=== PATIENT | male | born 1965 | race Caucasian/White ===

== ENCOUNTER 2019-12-19 07:17 | Outpatient (CLI) | payer OTHER, SELFPAY ==
--- NOTE | 2020-01-13 15:00 | WPDHOMESLEEP ---
Sleep Study - Home Date of Study: 12/19/19 Ordering Provider: Facundo Mercedes DO Interpreting Physician: Bonny Correa MD Home Sleep Study Type: Apnea Link Air Height: 1.65 m Weight: 95.254 kg Body Mass Index: 34.9 Economy: 12 Reason for Sleep Study Hypersomnia Sleep History Zach Song is a 54-year-old man 5 ft 5 in tall 210 lb with a body mass index of 34.9. He works swing shift. 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 He has seen his primary care doctor and his dentist about this problem. He occasionally awakens from sleep feeling short of breath. He rarely awakens at night with heartburn Joss coughing. He occasionally snores but does not mention if it is loud. He occasional has trouble sleep with a cold. He rarely wakes up gasping for breath at night. He never has breathing problems at night reported to by others and he does not sweat excessively at night. He rarely notices his heart pounding or beating her regularly at night. He occasionally fall asleep during the day, never involuntarily, never while driving, never during physical effort and he does not have loss of muscle tone was strong emotion. He occasionally has daytime difficulties due to excessive sleepiness. he does not feel paralyzed on waking or falling asleep and does not have vivid dreamlike scenes upon awakening or falling asleep. He has never Frenchie go to sleep. Does not have nightmares and does not remember his dreams. He occasionally has racing thoughts. Does not feel sad or depressed, really has anxiety, occasional his muscular tension, notices parts of his body jerking, kicks at night, has crawling and aching feelings in his legs and occasionally has leg pain at night. He does not have morning jaw pain. He does not grind his teeth during sleep. He is not bothered by pain during the day. He rarely is awakened by pain at night. He occasion wakes up feeling stiff in the morning with sore achy muscles rarely with pain in the neck and spine. His has headaches, fatigue, and insomnia. [place] = 12. Normal bedtime is 10:00, falling asleep within 1-2 hours waking 1 or 2 times while asleep, staying awake 1-3 hours. During this time he will go to the bathroom. He wakes in the morning between 1:00 and 2:00 a.m. He stays in bed for an hour before getting up. He estimate having 4-1/2 hours of sleep at night. He does watch television before falling asleep. He takes naps in the afternoon or evening. He will feel refreshed after short nap. He is usually drowsy after waking for 3 hours or longer. Habits: Never smoked tobacco. Two caffeinated beverages a day. No alcohol or recreational drugs. [facility] Past Medical History Medical History (Updated 01/13/20 @ 15:18 by Bonny Correa MD) Hypogonadism Family History Family History Father Family history of kidney disease Family history of coronary artery disease Family history of congestive heart failure Diabetes mellitus Mother Diabetes mellitus Sibling Family history of throat cancer Other Family history of seizure disorder Social History Social History Smoking status: Never smoker Second hand tobacco smoke exposure: No Alcohol intake: current Medications Home Medications Medication Instructions Recorded Confirmed Type testosterone cypionate 100 mg/mL 100 mg IM .q2week #10 ml 11/08/19 11/08/19 Rx intramuscular oil Sleep Procedure This test was performed using 4 channel monitoring including respiratory effort channel snoring channel heart rate channel and oxygen saturation channel. This study was scored using CMS guidelines. Sleep Architecture Not applicable for home sleep test. Respiratory Analysis Duration of the study was 6 hours 15 minutes
[2020-01-13 15:21] VITALS: BMI 34.9
== END 2019-12-19 07:18 | disposition home or self-care (01) ==
LOC: ANHCSM 07:18
PROVIDERS: PCP Family Medicine; Visit Provider Family Medicine
DX: G47.33 Obstructive sleep apnea (adult) (pediatric) (principal); F51.12 Insufficient sleep syndrome
CPT/HCPCS: 95806

== ENCOUNTER 2020-04-03 07:33 | Outpatient (CLI) | payer OTHER, SELFPAY ==
--- NOTE | 2020-04-03 07:48 | ECHO_ITS ---
Patient Info Name: Zach Song Age: 54 years : 1965 Gender: Male Ht: 65 in Wt: 220 lbs BSA: 2.18 m2 HR: 57 bpm BP: 173 / 83 mmHg Technical Quality: Good Exam Date: 04/03/2020 8:17 AM Exam Location: [facility] Pulmonary Patient Status: Outpatient Admit Date: 04/03/2020 Staff Ordering Physician: Bonny Correa MD Bass Singer: Brenden Eid RDCS, RT Attending Provider: Bonny Correa MD Referring Physician: Sunny LAW; Exam Type: CA echo doppler color flow Study Info Indications R06.02 - Shortness of breath Complete two-dimensional, color flow and Doppler transthoracic echocardiogram is performed. Strain analysis performed. Summary 1. Complete two-dimensional, color flow and Doppler transthoracic echocardiogram is performed. 2. Left ventricular chamber dimension is normal. 3. Left ventricular systolic function is normal, estimated at 60-65%. 4. There is moderately increased left ventricular wall thickness. 5. The left ventricular diastolic function is grade II diastolic dysfunction. 6. E/e' 12 is mildly elevated. 7. Global longitudinal strain is normal at -20.1%. 8. There is trace mitral valve regurgitation. Left Ventricle E/e' 12 is mildly elevated. Global longitudinal strain is normal at -20.1%. Left ventricular chamber dimension is normal. Left ventricular systolic function is normal, estimated at 60-65%. There is moderately increased left ventricular wall thickness. The left ventricular diastolic function is grade II diastolic dysfunction. Right Ventricle Right ventricular systolic function is normal and with normal TAPSE at 3.3 cm. Right ventricular chamber dimension is normal. Left Atria Left atrial chamber dimension is normal. Right Atria Right atrial chamber dimension is normal. Aortic Valve The aortic valve is trileaflet. There is no aortic valve stenosis. There is no aortic valve regurgitation. Pulmonic Valve There is no pulmonic regurgitation. Mitral Valve There is no mitral valve stenosis. There is trace mitral valve regurgitation. Tricuspid Valve There is no tricuspid valve regurgitation. Pericardium/Pleural There is no pericardial effusion. Inferior Vena Cava Normal inferior vena cava with >50% collapse upon inspiration consistent with normal right atrial pressure, 5 mmHg. Aorta The aortic root size at the sinus of Valsalva is normal. Left Ventricular Outflow Tract Name Value Normal LVOT 2D LVOT Diameter 2.0 cm LVOT Doppler LVOT Peak Gradient 4 mmHg LVOT Mean Gradient 2 mmHg LVOT VTI 24 cm LVOT VTI/AV VTI Ratio 0.6 LVOT Stroke Volume 72 ml LVOT CO 4.0 l/min LVOT CI 1.8 l/min/m2 Mitral Valve Name Value Normal MV Doppler -------
== END 2020-04-03 07:34 | disposition home or self-care (01) ==
PROVIDERS: PCP Family Medicine; Visit Provider Internal Medicine Critical Care Medicine
DX: R06.02 Shortness of breath (principal); G47.33 Obstructive sleep apnea (adult) (pediatric); G47.19 Other hypersomnia
CPT/HCPCS: 93306

== ENCOUNTER 2020-04-21 01:26 | Outpatient (CLI) | payer OTHER, SELFPAY ==
[2020-04-21 19:18] LABS: SARS-CoV-2 RNA PCR Negative
== END 2020-04-21 01:27 | disposition home or self-care (01) ==
LOC: ANHCOVIDDT 01:26
PROVIDERS: PCP Family Medicine; Visit Provider Internal Medicine Critical Care Medicine
DX: Z01.812 Encounter for preprocedural laboratory examination (principal); Z20.822 Contact with and (suspected) exposure to COVID-19
CPT/HCPCS: C9803; U0003; U0005

== ENCOUNTER 2020-04-23 10:06 | Outpatient (CLI) | payer OTHER, SELFPAY ==
--- NOTE | 2020-05-20 16:21 | WPDSLEEPSTUD ---
Sleep Study Date of Study: 04/23/20 Ordering Provider: Bonny Correa MD Interpreting Physician: Bonny Correa MD Sleep Study Type: CPAP Titration Height: 1.65 m Weight: 95.25 kg Body Mass Index: 34.9 Neck Circumference: 45.72 cm [place]: 12 Reason for Sleep Study Home sleep test ApneaLink 12/19/2019 moderate central sleep apnea, AHI 22, 54% central apneas; presents for CPAP titration Sleep History Zach Song is a 54-year-old man who had a home sleep test Dec 19, 2019 with AHI 22, 56% central apneas. He works swing shift. The patient has difficulty falling asleep, he wakes up during the night, he wakes up in the food aide and he has excessive daytime sleepiness. He has seen his primary care doctor and his dentist about this problem. He occasionally awakens from sleep feeling short of breath. He rarely awakens at night with heartburn Joss coughing. He occasionally snores but does not mention if it is loud. He occasional has trouble sleep with a cold. He rarely wakes up gasping for breath at night. He never has breathing problems at night reported to by others and he does not sweat excessively at night. He rarely notices his heart pounding or beating her regularly at night. He occasionally fall asleep during the day, never involuntarily, never while driving, never during physical effort and he does not have loss of muscle tone was strong emotion. He occasionally has daytime difficulties due to excessive sleepiness. he does not feel paralyzed on waking or falling asleep and does not have vivid dreamlike scenes upon awakening or falling asleep. He has never Frenchie go to sleep. Does not have nightmares and does not remember his dreams. He occasionally has racing thoughts. Does not feel sad or depressed, really has anxiety, occasional his muscular tension, notices parts of his body jerking, kicks at night, has crawling and aching feelings in his legs and occasionally has leg pain at night. He does not have morning jaw pain. He does not grind his teeth during sleep. He is not bothered by pain during the day. He rarely is awakened by pain at night. He occasion wakes up feeling stiff in the morning with sore achy muscles rarely with pain in the neck and spine. His has headaches, fatigue, and insomnia. [place] = 12. Normal bedtime is 10:00 p.m., falling asleep within 1-2 hours, waking 1 or 2 times while asleep, staying awake 1-3 hours. During this time he will go to the bathroom. He wakes in the morning between 1:00 and 2:00 a.m. He stays in bed for an hour before getting up. He estimate having 4-1/2 hours of sleep at night. He does watch television before falling asleep. He takes naps in the afternoon or evening. He will feel refreshed after short nap. He is usually drowsy after waking for 3 hours or longer. Habits: Never smoked tobacco. Two caffeinated beverages a day. No alcohol or recreational drugs. [facility] Past Medical History Medical History (Updated 04/17/20 @ 09:15 by Jeremie Watkins DO) Hypogonadism Family History Family History Father Family history of kidney disease Family history of coronary artery disease Family history of congestive heart failure Diabetes mellitus Mother Diabetes mellitus Sibling Family history of throat cancer Other Family history of seizure disorder Social History Social History Smoking status: Never smoker Second hand tobacco smoke exposure: No Alcohol intake: current Sleep Procedure This test was performed using the [employer] multiple channel system including EOG, EEG, submental EMG, EKG, nasal and oral airflow using thermistors and nasal pressure sensors, chest and abdominal belts for body position data, and pulse oximetry. Video monitoring was also performed. The study was scored using CMS guidelines. He self-administered Lunesta 3 mg at 20:45
[2020-05-28 14:57] VITALS: BMI 34.9
== END 2020-04-23 10:07 | disposition home or self-care (01) ==
LOC: ANHCSM 10:08
PROVIDERS: PCP Family Medicine; Visit Provider Internal Medicine Critical Care Medicine
DX: G47.33 Obstructive sleep apnea (adult) (pediatric) (principal); Z68.35 Body mass index [BMI] 35.0-35.9, adult
CPT/HCPCS: 95811

== ENCOUNTER 2020-05-08 09:15 | Outpatient (CLI) | payer OTHER, SELFPAY ==
--- NOTE | 2020-05-08 09:17 | EST_ITS ---
Patient Info Name: Zach Song Age: 54 years : 1965 Gender: Male Ht: 65 in Wt: 220 lbs BSA: 2.18 m2 Exam Date: 05/08/2020 9:50 AM Exam Location: [facility] Stress Patient Status: Outpatient Admit Date: 05/08/2020 Staff Ordering Physician: Jeremie Watkins DO Attending Provider: Jeremie Watkins DO Exercise Technologist: Noreen Quiroga RDCS Exercise Physician: Jeremie Watkins DO Exam Type: CA stress test treadmill Study Info Indications R06.00 - Dyspnea, unspecified A treadmill exercise stress test was performed. Summary 1. 1. Negative Donnie exercise stress test for ischemic ST changes by ECG criteria. 2. 2. Good functional capacity, achieving 10 METs of workload. 3. 3. Appropriate HR response to exercise. 4. 4. Appropriate HR recovery at 1 minute post exercise. 5. 5. Baseline hypertension with hypertensive response to exercise. 6. 6. No imaging with stress testing. 7. 7. Patient informed of the above results. Protocol: Donnie Stress ECG Details Stage: REST Duration (min): 7 min : 2 sec Speed (mph): 0.0 Grade (%): 0 HR (bpm): 62 SBP (mmHg): 148 DBP (mmHg): 76 METS: --- Stage: REST Duration (min): 21 min : 2 sec Speed (mph): 0.0 Grade (%): 0 HR (bpm): 59 SBP (mmHg): 148 DBP (mmHg): 76 METS: --- Stage: STAGE 1 Duration (min): 1 min : 0 sec Speed (mph): 1.7 Grade (%): 10 HR (bpm): 88 SBP (mmHg): 148 DBP (mmHg): 76 METS: --- Stage: STAGE 1 Duration (min): 2 min : 0 sec Speed (mph): 1.7 Grade (%): 10 HR (bpm): 97 SBP (mmHg): 148 DBP (mmHg): 76 METS: --- Stage: STAGE 1 Duration (min): 3 min : 0 sec Speed (mph): 1.7 Grade (%): 10 HR (bpm): 102 SBP (mmHg): 168 DBP (mmHg): 54 METS: --- Stage: STAGE 2 Duration (min): 1 min : 0 sec Speed (mph): 2.5 Grade (%): 12 HR (bpm): 112 SBP (mmHg): 168 DBP (mmHg): 54 METS: --- Stage: STAGE 2 Duration (min): 2 min : 0 sec Speed (mph): 2.5 Grade (%): 12 HR (bpm): 123 SBP (mmHg): 169 DBP (mmHg): 60 METS: --- Stage: STAGE 2 Duration (min): 3 min : 0 sec Speed (mph): 2.5 Grade (%): 12 HR (bpm): 126 SBP (mmHg): 169 DBP (mmHg): 60 METS: --- Stage: STAGE 3 Duration (min): 1 min : 0 sec Speed (mph): 3.4 Grade (%): 14 HR (bpm): 137 SBP (mmHg): 184 DBP (mmHg): 68 METS: --- Stage: STAGE 3 Duration (min): 2 min : 0 sec Speed (mph): 3.4 Grade (%): 14 HR (bpm): 152 SBP (mmHg): 184 DBP (mmHg): 68 METS: --- Stage: STAGE 3 Duration (min): 3 min : 0 sec Speed (mph): 3.4 Grade (%): 14 HR (bpm): 157 SBP (mmHg): 226 DBP (mmHg): 59 METS: --- Stage: RECOVERY Duration (min): 1 min : 0 sec Speed (mph): 0.0 Grade (%): 0 HR (bpm): 130 SBP (mmHg): 199 DBP (mmHg): 68 METS: --- Stage: R
== END 2020-05-08 09:16 | disposition home or self-care (01) ==
PROVIDERS: PCP Family Medicine; Visit Provider Internal Medicine Cardiovascular Disease
DX: R06.00 Dyspnea, unspecified (principal)
CPT/HCPCS: 93017

== ENCOUNTER 2020-10-18 12:58 | Emergency (ER) | payer OTHER, SELFPAY ==
[2020-10-18 13:02] VITALS: BP 124/64; PULSE 55; RESP 12; TEMP 36.6; O2SAT 100
[2020-10-18 13:05] VITALS: BP 124/64; PULSE 55; RESP 12; TEMP 36.6; O2SAT 100
--- NOTE | 2020-10-18 13:24 | ED.SKABFB ---
HPI - Skin/Abscess/Foreign Bdy General Chief complaint: Skin/Abscess/Foreign Body Stated complaint: RASH Time Seen by Provider: 10/18/20 13:15 Source: patient and RN notes reviewed Mode of arrival: ambulatory Limitations: no limitations History of Present Illness HPI narrative: Patient presents today complaining of a pruritic rash to his bilateral arms, waistband, and genitalia x2 days that has been worsening since onset. Believes it is poison lanie, oak, sumac as he was pulling landscaping blocks out of weeds prior to onset of symptoms. He has been using some old poison lanie medication without relief. MD complaint: rash Related Data Allergies Allergy/AdvReac Type Severity Reaction Status Date / Time No Known Allergies Allergy Unknown Verified 10/18/20 13:04 Review of Systems Review of Systems: CONSTITUTIONAL: Denies body aches, fever, chills, or sweats. EYES: Denies visual changes, redness, or discharge. ENT: Denies rhinorrhea, congestion, sore throat, or otalgia. CARDIOVASCULAR: Denies chest pain, palpitations, or edema. RESPIRATORY: Denies cough or dyspnea. GASTROINTESTINAL: Denies abdominal pain, nausea, vomiting, or diarrhea. GENITOURINARY: Denies dysuria or hematuria. SKIN: Pruritic rash MUSCULOSKELETAL: Denies back pain, joint pain, or myalgia. NEUROLOGIC: Denies headache, numbness, tingling, or weakness. PSYCH: Denies depression or anxiety. [facility] Past Medical History Medical History (Updated 10/18/20 @ 13:27 by Rosalind Mandujano, RAMYA, ) Hypogonadism Family History Family History Father Family history of kidney disease Family history of coronary artery disease Family history of congestive heart failure Diabetes mellitus Mother Diabetes mellitus Sibling Family history of throat cancer Other Family history of seizure disorder Social History Social History Smoking status: Never smoker Second hand tobacco smoke exposure: No Alcohol intake: current Comments At time of signature, I have reviewed and agree with nursing past medical, surgical, social and family history unless otherwise noted. Please see nursing chart for further information. There is no relevant family history pertinent to the presenting complaint Exam Narrative: GENERAL: Well-appearing, well-nourished, and in no acute distress. HEAD: Normocephalic, atraumatic. EYES: EOMI. No redness or drainage. Conjunctivae normal. ENT: Mucous membranes pink and moist. NECK: Normal AROM. CHEST: No respiratory distress. EXTREMITIES: Normal range of motion. No edema. SKIN: Warm, dry. Capillary refill normal. Normal skin turgor. + Faintly erythematous papular rash to the forearms, waistband anteriorly, and the left side of the scrotum and penis. There is some slight induration to the scrotum. NEURO: No focal deficits. Alert and oriented x3. Gait steady. PSYCH: Normal affect. No signs of depression or anxiety. Course Vital Signs Vital signs: Vital Signs Temperature 97.8 F 10/18/20 13:02 Pulse Rate 55 L 10/18/20 13:02 Respiratory Rate 12 10/18/20 13:02 Blood Pressure 124/64 10/18/20 13:02 Pulse Oximetry 100 10/18/20 13:02 Temperature 97.8 F 10/18/20 13:05 Pulse Rate 55 L 10/18/20 13:05 Respiratory Rate 12 10/18/20 13:05 Blood Pressure 124/64 10/18/20 13:05 Pulse Oximetry 100 10/18/20 13:05 Reviewed. Pt has been instructed to follow up with his PCP regarding his elevated blood pressure today. MDM - Skin/Abscess/Foreign Bdy Differential Diagnosis Differential diagnosis: Likely urticaria, cellulitis, eczema, insect bites, impetigo and contact dermatitis Critical Care Time Critical Care Time Critical Care Time: No Discharge Plan Discharge Clinical Impression: Contact dermatitis Qualifiers: Contact dermatitis type: unspecified Contact dermatitis trigger: unspecified
== END 2020-10-18 13:49 | disposition home or self-care (01) ==
PROVIDERS: Emergency Provider Nurse Practitioner; PCP Family Medicine
DX: L25.9 Unspecified contact dermatitis, unspecified cause (principal)
CPT/HCPCS: 99213; G0463

== ENCOUNTER 2020-11-05 18:33 | Emergency (ER) | payer OTHER, SELFPAY ==
[2020-11-05 18:39] VITALS: BP 125/73; PULSE 58; RESP 16; TEMP 37.1; O2SAT 98
--- NOTE | 2020-11-05 19:08 | ED.SKABFB ---
HPI - Skin/Abscess/Foreign Bdy General Chief complaint: Skin/Abscess/Foreign Body Stated complaint: UNKNOWN Time Seen by Provider: 11/05/20 19:05 Source: patient Mode of arrival: ambulatory Limitations: no limitations History of Present Illness HPI narrative: Zach Song is a 55 yo male with no PMH [facility] episode of poison lanie. Seen here couple weeks ago for poison lanie was put on a Medrol dose pack. He states discussed with the patient that he needs to make sure that all the oil has been removed from his ptosis gloves shoes all clothing and he claims that that has been done and that this is not new exposure. He wants an prednisone shot as well as another dose of steroids Related Data Allergies Allergy/AdvReac Type Severity Reaction Status Date / Time No Known Allergies Allergy Unknown Verified 11/05/20 18:40 Review of Systems Review of Systems: CONSTITUTIONAL: Denies fever, chills, sweats. EYES: Denies visual changes, redness, discharge. ENT: Denies rhinorrhea, congestion, sore throat, otalgia. CARDIOVASCULAR: Denies chest pain, palpitations, edema. RESPIRATORY: Denies dyspnea, wheezing, cough GASTROINTESTINAL: Denies abdominal pain, nausea, vomiting, diarrhea. GENITOURINARY: Denies dysuria, hematuria, abnormal discharge SKIN: Itchy rash on forearms abdomen legs and right underarm. Left forearm specifically looks like a new rash as does his abdomen NEUROLOGIC: Denies numbness, or focal weakness. PSYCHIATRIC: Denies anxiety or depression. PMFSH Past Medical History Medical History Dyslipidemia Hypogonadism Obesity Family History Family History Father Family history of kidney disease Family history of coronary artery disease Family history of congestive heart failure Diabetes mellitus Mother Diabetes mellitus Sibling Family history of throat cancer Other Family history of seizure disorder Social History Social History Smoking status: Never smoker Second hand tobacco smoke exposure: No Alcohol intake: current Comments At time of signature, I agree with nursing past medical, surgical, social and family history. There is no relevant family history pertinent to the presenting complaint. Exam Narrative: GENERAL: This is a well-nourished, well-developed patient, in mild distress. HEAD: normocephalic, atraumatic. EYES: Sclera clear/white. Vision is grossly intact. EARS: External ears normal. Hearing grossly intact. NOSE: External nose normal without nasal discharge, nares without redness, no rhinorrhea. THROAT: Mucous membranes moist, NECK: Neck supple, CARDIOVASCULAR: Regular rate and rhythm without murmurs, gallops, or rubs. RESPIRATORY: Clear to auscultation. Breath sounds equal bilaterally. No wheezes, rales, or rhonchi. GASTROINTESTINAL: Abdomen soft,, SKIN: warm, intact with pruritic erythematous papular rash on left forearm extensively bilateral legs small amount on the lower part of the left abdomen and right axilla NEURO: awake, alert, and oriented to person, place and time. There were no obvious focal neurologic abnormalities. Steady gait EXTREMITIES: Normal range of motion. BACK: Nontender without deformity Course Course Emergency Course: Patient here for recurrence of contact dermatitis he states he does not know how he was reinfected Patient given IM Solu-Medrol Given another Medrol Dosepak, recommended use of Benadryl and Pepcid also Vital Signs Vital signs: Vital Signs Temperature 98.7 F 11/05/20 18:39 Pulse Rate 58 L 11/05/20 18:39 Respiratory Rate 16 11/05/20 18:39 Blood Pressure 125/73 11/05/20 18:39 Pulse Oximetry 98 11/05/20 18:39 Temperature 98.7 F 11/05/20 18:39 Pulse Rate 58 L 11/05/20 18:39 Respiratory Rate 16 11/05/20 18:39 Blood Pressure
[2020-11-05] MEDS: methylPREDNISolone SOD SUCC 125 MG VIAL 80 MG IM (19:27)
== END 2020-11-05 19:45 | disposition home or self-care (01) ==
PROVIDERS: Emergency Provider Nurse Practitioner; PCP Family Medicine
DX: L23.7 Allergic contact dermatitis due to plants, except food (principal); E78.5 Hyperlipidemia, unspecified; E66.9 Obesity, unspecified; Z68.28 Body mass index [BMI] 28.0-28.9, adult
CPT/HCPCS: 96372; 99213; G0463; J2930

== ENCOUNTER 2020-11-13 07:33 | Outpatient (CLI) | payer OTHER, SELFPAY ==
[2020-11-13 18:37] LABS: Basophils Percent Auto 0.4 % (0.2-1.2); Eosinophils Absolute Auto 0.4 K/mm3 (0-0.3); Eosinophils Percent Auto 5.7 % (0-4.4); Hematocrit 46.1 % (42.0-52.0); Hemoglobin 14.7 g/dL (14.0-18.0); Immature Granulocyte Absolute 0.03 K/mm3 (0.00-0.031); Immature Granulocyte Percent A 0.4 % (0-0.5); Lymphocytes Absolute Auto 2.92 K/mm3 (0.9-3.2); Lymphocytes Percent Auto 39.5 % (18.3-44.2); Mean Corpuscular HGB Conc 31.9 g/dl (32-36); Mean Corpuscular Hemoglobin 27.5 pg (26-34); Mean Corpuscular Volume 86.3 fl (80-100); Mean Platelet Volume 9.5 fl (7.4-10.4); Monocytes Absolute Auto 0.6 K/mm3 (0.1-0.6); Monocytes Percent Auto 8.4 % (2.6-8.5); Neutrophils Absolute Auto 3.4 K/mm3 (1.3-6.7); Neutrophils Percent Auto 45.6 % (45.5-73.1); Platelet Count Result 307 k/mm3 (150-375); Red Blood Count 5.34 M/mm3 (4.6-6.20); White Blood Count 7.4 K/mm3 (4.5-10.0)
[2020-11-13 18:58] LABS: Hemoglobin A1C 5.5 % (<5.7)
[2020-11-13 18:59] LABS: Alanine Aminotransferase 20 U/L (4-50); Alkaline Phosphatase 72 U/L (38-126); Anion Gap 5 mmol/L (8-16); Aspartate Amino Transferase 18 U/L (17-59); Bilirubin,Total 1.4 mg/dL (0.2-1.3); Blood Urea Nitrogen 19 mg/dL (9-20); Calcium 9.4 mg/dL (8.4-10.2); Carbon Dioxide 28 mmol/L (22-30); Chloride 104 mmol/L (98-107); Cholesterol 172 mg/dL (0-200); Estimated Glomerular Filt Rate > 60; Glucose 90 mg/dL (65-110); HDL Direct 40 mg/dL; Potassium 4.2 mmol/L (3.4-5.0); Sodium 137 mmol/L (137-145); Triglycerides 167 mg/dL (<150)
[2020-11-13 19:09] LABS: LDL Cholesterol Direct 91 mg/dL
[2020-11-13 19:23] LABS: Prostate Specific Antigen 1.2 ng/mL (< OR = 4.0)
[2020-11-13 19:52] LABS: Vitamin D 25 Hydroxy 40.4 ng/mL
[2020-11-18 15:19] LABS: Testosterone Free 68.9 pg/mL (35.0-155.0); Testosterone Total 319 ng/dL (250-1100)
== END 2020-11-13 07:34 | disposition home or self-care (01) ==
LOC: ANHBWCLAB 07:34
PROVIDERS: PCP Family Medicine; Visit Provider Family Medicine
DX: Z00.00 Encounter for general adult medical examination without abnormal findings (principal); E66.9 Obesity, unspecified; E78.5 Hyperlipidemia, unspecified; E29.1 Testicular hypofunction; G47.29 Other circadian rhythm sleep disorder; Z12.5 Encounter for screening for malignant neoplasm of prostate; E55.9 Vitamin D deficiency, unspecified
CPT/HCPCS: 36415; 80053; 80061; 82306; 83036; 84153; 84402; 84403; 85025; G0103

== ENCOUNTER 2021-09-02 12:06 | Emergency (ER) | payer OTHER, SELFPAY ==
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
[2021-09-02 12:13] VITALS: BP 156/84; PULSE 68; RESP 16; TEMP 37.1; O2SAT 99
[2021-09-02 12:16] VITALS: BP 156/84; PULSE 68; RESP 16; TEMP 37.1; O2SAT 99
== END 2021-09-02 13:10 | disposition home or self-care (01) ==
PROVIDERS: Emergency Provider Nurse Practitioner Family
DX: S39.012A Strain of muscle, fascia and tendon of lower back, initial encounter (principal); S16.1XXA Strain of muscle, fascia and tendon at neck level, initial encounter; V43.52XA Car driver injured in collision with other type car in traffic accident, initial encounter; E78.5 Hyperlipidemia, unspecified; E66.9 Obesity, unspecified; Z68.32 Body mass index [BMI] 32.0-32.9, adult
CPT/HCPCS: 72040; 72100; 99213; G0463

== ENCOUNTER 2022-01-17 08:02 | Emergency (ER) | payer OTHER, SELFPAY ==
--- NOTE | 2022-01-17 08:10 | ED.URI ---
HPI - URI/Sore Throat General Chief Complaint: Upper Respiratory Infection Stated Complaint: migraine, sore throat, sinus pressure Time Seen by Provider: 01/17/22 08:17 Source: patient and RN notes reviewed Mode of arrival: ambulatory Limitations: no limitations History of Present Illness HPI Narrative: 56-year-old male presents with concern for 1 and half day history headache, fever, chills, sore throat. Reports taking aspirin with mild relief of the headache. He reports he is starting to have a cough and postnasal drainage. MD elicited complaint: sore throat and other (Headache) Related Data Allergies Allergy/AdvReac Type Severity Reaction Status Date / Time No Known Allergies Allergy Unknown Verified 09/02/21 12:16 Review of Systems Review of Systems: CONSTITUTIONAL: Reports malaise, chills, tactile fever. EYES: Denies visual changes, redness, or discharge. ENT: Denies rhinorrhea, congestion, sinus pain, otalgia. Reports postnasal drainage and sore throat. CARDIOVASCULAR: Denies chest pain, palpitations, or edema. RESPIRATORY: Reports cough. Denies dyspnea. GASTROINTESTINAL: Denies abdominal pain, nausea, vomiting, diarrhea SKIN: Denies rash or itching. MUSCULOSKELETAL: Denies myalgia. NEUROLOGIC: Reports headache. All systems reviewed & are unremarkable except as noted in HPI and below PMFSH Past Medical History Medical History Dyslipidemia Hypogonadism Obesity Family History Family History Father Family history of kidney disease Family history of coronary artery disease Family history of congestive heart failure Diabetes mellitus Mother Diabetes mellitus Sibling Family history of throat cancer Other Family history of seizure disorder Social History Social History Smoking status: Never smoker Second hand tobacco smoke exposure: No Alcohol intake: current Comments At time of signature, agree with nursing past medical, surgical, social and family history. There is no relevant family history pertinent to the presenting complaint Exam Narrative: GENERAL: Nontoxic-appearing and in no acute distress. HEAD: Normocephalic EYES: PERRLA, conjunctivae clear ENT: Nares clear, clear discharge. Mucous membranes moist. TM pearly davis with dull light reflex bilaterally; no tragal tenderness. Oropharynx erythematous without lesions. Tonsils not enlarged and without exudate, no drooling, no hoarseness, no trismus, uvula midline. NECK: Supple. No lymphadenopathy CHEST: Clear to auscultation, breath sounds equal. No wheezing, rhonchi, rales, or stridor. No respiratory distress, speaks in full sentences. HEART: Regular rate and rhythm. No murmur heard. SKIN: Warm, dry, no rash. NEURO: Alert and oriented x3. PSYCH: Normal mood and affect Course Course Emergency Course: Patient is aware of diagnosis, understands and agrees to treatment plan. Anticipatory guidance given. Patient agrees to follow-up as directed and is aware of reasons to seek care at the emergency department. Portions of this record may have been created with voice recognition software Level of Care: Express Care Visit Vital Signs Vital signs: Reviewed. MDM - URI/Sore Throat MDM Narrative Medical decision making narrative: Differential diagnosis considered: Kellogg virus, strep pharyngitis, allergic rhinitis, upper respiratory tract infection, sinusitis, rhinosinusitis, nasopharyngitis. viral pharyngitis, otitis media, otitis externa, pneumonia, bronchitis, viral cough syndrome, viral syndrome, and influenza. Exam findings show no acute concerns or changes; patient is non-toxic appearing and is in no distress. Patient is appropriate for outpatient treatment and follow-up. Lab Data Attestation: I reviewed the patient's lab results. Critical Care Time Critical Care Time Cr
[2022-01-17 08:16] VITALS: BP 132/93; PULSE 85; RESP 16; TEMP 37.7; O2SAT 98
[2022-01-17 20:04] LABS: SARS-CoV-2 RNA PCR Positive
== END 2022-01-17 08:45 | disposition home or self-care (01) ==
PROVIDERS: Emergency Provider Nurse Practitioner
DX: U07.1 COVID-19 (principal)
CPT/HCPCS: 87081; 87804; 87880; 99213; G0463; U0003; U0005

== ENCOUNTER 2022-01-27 08:35 | Outpatient (CLI) | payer OTHER, SELFPAY ==
[2022-01-27 19:30] LABS: Alanine Aminotransferase 32 U/L (6-50); Albumin Level 4.7 g/dL (3.5-5.1); Alkaline Phosphatase 76 U/L (38-126); Anion Gap 11 mmol/L (8-16); Aspartate Amino Transferase 90 U/L (17-59); Bilirubin,Total 0.9 mg/dL (0.2-1.3); Blood Urea Nitrogen 13 mg/dL (9-20); Calcium 9.3 mg/dL (8.4-10.2); Carbon Dioxide 24 mmol/L (22-30); Chloride 104 mmol/L (98-107); Cholesterol 196 mg/dL (0-200); Estimated Glomerular Filt Rate > 60; Glucose 83 mg/dL (65-110); HDL Direct 33 mg/dL; Potassium 4.2 mmol/L (3.4-5.0); Sodium 139 mmol/L (137-145); Triglycerides 245 mg/dL (<150)
[2022-01-27 19:38] LABS: Basophils Absolute Auto 0.1 K/mm3 (0.0-0.1); Basophils Percent Auto 0.8 % (0.2-1.2); Eosinophils Absolute Auto 0.2 K/mm3 (0-0.3); Eosinophils Percent Auto 2.7 % (0-4.4); Hematocrit 46.2 % (42.0-52.0); Hemoglobin 15.3 g/dL (14.0-18.0); Immature Granulocyte Absolute 0.04 K/mm3 (0.00-0.031); Immature Granulocyte Percent A 0.5 % (0-0.5); Lymphocytes Absolute Auto 3.48 K/mm3 (0.9-3.2); Lymphocytes Percent Auto 44.3 % (18.3-44.2); Mean Corpuscular HGB Conc 33.1 g/dl (32-36); Mean Corpuscular Volume 84.6 fl (80-100); Mean Platelet Volume 9.4 fl (7.4-10.4); Monocytes Absolute Auto 0.7 K/mm3 (0.1-0.6); Monocytes Percent Auto 8.5 % (2.6-8.5); Neutrophils Absolute Auto 3.4 K/mm3 (1.3-6.7); Neutrophils Percent Auto 43.2 % (45.5-73.1); Platelet Count Result 399 k/mm3 (150-375); Red Blood Count 5.46 M/mm3 (4.6-6.20); Red Cell Distribution Width 13.1 % (11.5-14.5); White Blood Count 7.9 K/mm3 (4.5-10.0)
[2022-01-27 19:41] LABS: LDL Cholesterol Direct 106 mg/dL
[2022-01-27 19:56] LABS: Prostate Specific Antigen 1.8 ng/mL (< OR = 4.0)
[2022-02-02 12:08] LABS: Testosterone Total 229 ng/dL (250-1100)
== END 2022-01-27 08:36 | disposition home or self-care (01) ==
LOC: ANHBWCLAB 08:37
PROVIDERS: PCP Family Medicine; Visit Provider Family Medicine
DX: E29.1 Testicular hypofunction (principal); Z00.00 Encounter for general adult medical examination without abnormal findings; Z12.5 Encounter for screening for malignant neoplasm of prostate; E66.9 Obesity, unspecified
CPT/HCPCS: 36415; 80053; 80061; 84153; 84402; 84403; 85025; 86787; G0103

== ENCOUNTER 2022-12-16 08:17 | Outpatient (CLI) | payer OTHER, SELFPAY ==
[2022-12-16 19:57] LABS: Basophils Percent Auto 0.6 % (0.2-1.2); Eosinophils Absolute Auto 0.2 K/mm3 (0-0.3); Eosinophils Percent Auto 2.4 % (0-4.4); Hematocrit 47.7 % (42.0-52.0); Immature Granulocyte Absolute 0.02 K/mm3 (0.00-0.031); Immature Granulocyte Percent A 0.3 % (0-0.5); Lymphocytes Absolute Auto 2.69 K/mm3 (0.9-3.2); Lymphocytes Percent Auto 38.6 % (18.3-44.2); Mean Corpuscular HGB Conc 31.4 g/dl (32-36); Mean Corpuscular Hemoglobin 27.6 pg (26-34); Mean Corpuscular Volume 87.7 fl (80-100); Mean Platelet Volume 9.8 fl (7.4-10.4); Monocytes Absolute Auto 0.8 K/mm3 (0.1-0.6); Monocytes Percent Auto 10.8 % (2.6-8.5); Neutrophils Absolute Auto 3.3 K/mm3 (1.3-6.7); Neutrophils Percent Auto 47.3 % (45.5-73.1); Platelet Count Result 307 k/mm3 (150-375); Red Blood Count 5.44 M/mm3 (4.6-6.20); Red Cell Distribution Width 13.8 % (11.5-14.5)
[2022-12-16 20:07] LABS: Alanine Aminotransferase 27 U/L (6-50); Albumin Level 4.6 g/dL (3.5-5.1); Alkaline Phosphatase 72 U/L (38-126); Anion Gap 6 mmol/L (8-16); Aspartate Amino Transferase 96 U/L (17-59); Bilirubin,Total 0.9 mg/dL (0.2-1.3); Blood Urea Nitrogen 11 mg/dL (9-20); Calcium 9.1 mg/dL (8.4-10.2); Carbon Dioxide 32 mmol/L (22-30); Chloride 100 mmol/L (98-107); Cholesterol 172 mg/dL (0-200); Estimated Glomerular Filt Rate > 60; Glucose 93 mg/dL (65-110); HDL Direct 31 mg/dL; Sodium 138 mmol/L (137-145); Triglycerides 219 mg/dL (<150)
[2022-12-16 20:18] LABS: LDL Cholesterol Direct 99 mg/dL
[2022-12-16 20:57] LABS: Hemoglobin A1C 5.5 % (<5.7)
[2022-12-22 12:33] LABS: Testosterone Free 61.3 pg/mL (35.0-155.0); Testosterone Total 275 ng/dL (250-1100)
== END 2022-12-16 08:18 | disposition home or self-care (01) ==
PROVIDERS: PCP Nurse Practitioner Adult Health; Visit Provider Nurse Practitioner Adult Health
DX: Z12.5 Encounter for screening for malignant neoplasm of prostate (principal); E29.1 Testicular hypofunction; G47.33 Obstructive sleep apnea (adult) (pediatric)
CPT/HCPCS: 36415; 80053; 80061; 83036; 84153; 84402; 84403; 85025; G0103